=== PATIENT | female | born 1985 | race African-American/Black ===

== ENCOUNTER 2020-11-12 08:15 | Inpatient (IN) | payer OTHER ==
[2020-11-12 10:25] LABS: BASO % 0.4 % (0-2.0); HEMATOCRIT 30.8 % (32.4-45.2); HEMOGLOBIN 9.7 GM/dL (10.7-15.3); LYMPH % 11.1 % (8-40); MCH 24.1 pg (25.7-33.7); MCHC 31.6 g/dl (32.0-36.0); MEAN CELL VOLUME 76.2 fl (80-96); MEAN PLT VOLUME 8.5 fl (7.5-11.1); MONO % 9.8 % (3.8-10.2); NEUT % 77.7 % (42.8-82.8); PLATELET COUNT 365 K/MM3 (134-434); RBC 4.03 M/mm3 (3.60-5.2); RDW 25.8 % (11.6-15.6); WHITE BLOOD COUNT 12.2 K/mm3 (4.0-10.0)
[2020-11-12 10:32] LABS: INR 1.03 (0.83-1.09); PROTHROMBIN TIME (PATIENT) 12.7 SEC (9.7-13.0)
[2020-11-12 10:34] LABS: ACTIVATED PTT 26.4 SECONDS (25.2-36.5)
[2020-11-12 10:47] LABS: BLOOD UREA NITROGEN 4.3 mg/dL (7-18)
[2020-11-12 10:48] VITALS: BMI 32.4
[2020-11-12 10:50] LABS: CREATININE 0.6 mg/dL (0.55-1.3)
[2020-11-12 11:10] LABS: ANISOCYTOSIS 2+; MACROCYTOSIS 1+; PLATELET ESTIMATE NORMAL
[2020-11-12] MEDS ORDERED: OXYTOCIN 30 UNITS in 0.9% NS 30 UNIT/500 ML INFUS.BAG IVPB ONE (16:38)
[2020-11-12] MEDS ORDERED: DEXTROSE 5%-LACTATED RINGERS 1,000 ML IV SCH (16:45)
[2020-11-12] MEDS ORDERED: OXYTOCIN 30 UNITS in 0.9% NS 30 UNIT/500 ML INFUS.BAG IVPB SCH (17:00)
[2020-11-13] MEDS ORDERED: OXYTOCIN 20 UNITS in 0.9% NS 20 UNIT/1,000 ML INFUS.BAG IV ONE ×3 (00:06→04:10)
[2020-11-13] MEDS ORDERED: LIDOCAINE HCL 1% PRESERVATIVE FREE - 30ML VIAL ONE (00:06)
[2020-11-13] MEDS: OXYTOCIN 20 UNITS in 0.9% NS 20 UNIT/1,000 ML INFUS.BAG IV SCH ×4 (00:30→21:31)
[2020-11-13] MEDS ORDERED: ACETAMINOPHEN INJECTION 100 ML IVPB ONE (00:55)
[2020-11-13] MEDS ORDERED: OXYTOCIN 10 UNIT/ML 10ML MDV IM ONE (01:00)
[2020-11-13] MEDS ORDERED: OXYTOCIN 10 UNITS/ML VIAL ONE (01:00)
[2020-11-13 01:08] LABS: CORD HCO3 21.9 mmHg (20-29); CORD PCO2 42.6 mmHg (30-78); CORD pH 7.328 (7.14-7.44)
[2020-11-13 01:09] LABS: CORD BASE EXCESS -3.8 mmol/L (0-2); CORD HCO3 21.7 mmHg (20-29); CORD PCO2 41.1 mmHg (30-78); CORD pH 7.341 (7.14-7.44)
[2020-11-13] MEDS ORDERED: METHYLERGONOVINE MALEATE 0.2 MG/1 ML AMP IM PRN (03:25)
[2020-11-13] MEDS ORDERED: ACETAMINOPHEN 325 MG TABLET (FP) PO PRN (03:25)
[2020-11-13] MEDS ORDERED: BENZOCAINE 28 GM HEMORRHOIDAL OINTMENT TP PRN (03:25)
[2020-11-13] MEDS ORDERED: BISACODYL 10 MG SUPP.RECT RC PRN (03:25)
[2020-11-13] MEDS ORDERED: IBUPROFEN 600 MG TABLET (FP) PO ONE (03:25)
[2020-11-13] MEDS: IBUPROFEN 600 MG TABLET (FP) PO PRN ×3 (03:25→22:21)
[2020-11-13] MEDS ORDERED: WITCH HAZEL 50% (TUCKS) 40 PAD/JAR PAD TP PRN (03:25)
[2020-11-13] MEDS ORDERED: BENZOCAINE 20% 57 GM BOTTLE TP PRN (03:25)
[2020-11-13] MEDS ORDERED: ACETAMINOPHEN 1000 MG/100 ML VIAL (NON FORMULARY) IVPB PRN (04:00)
[2020-11-13] MEDS ORDERED: IRON SUCROSE INJECTION 300 MG in SODIUM CHLORIDE 235 ML IVPB ONE (04:45)
[2020-11-13 05:28] LABS: BASO % 0.3 % (0-2.0); EOS % 0.1 % (0-4.5); HEMATOCRIT 29.8 % (32.4-45.2); HEMOGLOBIN 9.3 GM/dL (10.7-15.3); LYMPH % 6.3 % (8-40); MCH 24.3 pg (25.7-33.7); MEAN CELL VOLUME 78.4 fl (80-96); MEAN PLT VOLUME 8.8 fl (7.5-11.1); MONO % 6.4 % (3.8-10.2); NEUT % 86.9 % (42.8-82.8); PLATELET COUNT 385 K/MM3 (134-434); RBC 3.81 M/mm3 (3.60-5.2); WHITE BLOOD COUNT 20.9 K/mm3 (4.0-10.0)
[2020-11-13 08:32] LABS: BASO % 0.2 % (0-2.0); EOS % 0.3 % (0-4.5); HEMATOCRIT 28.8 % (32.4-45.2); HEMOGLOBIN 8.9 GM/dL (10.7-15.3); LYMPH % 8.8 % (8-40); MCH 23.7 pg (25.7-33.7); MCHC 30.9 g/dl (32.0-36.0); MEAN CELL VOLUME 76.6 fl (80-96); MEAN PLT VOLUME 8.2 fl (7.5-11.1); MONO % 7.4 % (3.8-10.2); NEUT % 83.3 % (42.8-82.8); PLATELET COUNT 349 K/MM3 (134-434); RBC 3.76 M/mm3 (3.60-5.2); RDW 25.8 % (11.6-15.6); WHITE BLOOD COUNT 19.7 K/mm3 (4.0-10.0)
[2020-11-13 08:38] LABS: INR 1.02 (0.83-1.09); PROTHROMBIN TIME (PATIENT) 12.3 SEC (9.7-13.0)
[2020-11-13] MEDS ORDERED: DIPHTH,PERTUSS(ACELL),TET 0.5 ML DISP.SYRIN IM ONE (10:00)
[2020-11-13 10:27] LABS: ANISOCYTOSIS 0; MACROCYTOSIS 0; PLATELET ESTIMATE NORMAL
[2020-11-13] MEDS: PRENATAL VITAMINS W/ FOLIC ACID TABLET (FP) PO SCH (11:14)
[2020-11-14 08:59] LABS: BASO % 0.3 % (0-2.0); HEMATOCRIT 23.9 % (32.4-45.2); HEMOGLOBIN 7.6 GM/dL (10.7-15.3); LYMPH % 13.1 % (8-40); MCH 24.6 pg (25.7-33.7); MCHC 31.6 g/dl (32.0-36.0); MEAN CELL VOLUME 77.6 fl (80-96); MEAN PLT VOLUME 8.2 fl (7.5-11.1); MONO % 7.9 % (3.8-10.2); NEUT % 77.7 % (42.8-82.8); PLATELET COUNT 313 K/MM3 (134-434); RBC 3.08 M/mm3 (3.60-5.2); RDW 25.9 % (11.6-15.6); WHITE BLOOD COUNT 14.8 K/mm3 (4.0-10.0)
[2020-11-14] MEDS: PRENATAL VITAMINS W/ FOLIC ACID TABLET (FP) PO SCH (09:56)
[2020-11-14] MEDS ORDERED: DIPHTH,PERTUSS(ACELL),TET 0.5 ML DISP.SYRIN IM ONE (10:00)
[2020-11-14 10:22] LABS: ANISOCYTOSIS 1+; MACROCYTOSIS 0; OVALOCYTE 1+; PLATELET ESTIMATE NORMAL
[2020-11-14] MEDS: IBUPROFEN 600 MG TABLET (FP) PO PRN (17:04)
[2020-11-14] MEDS ORDERED: SENNOSIDES/DOCUSATE COMBO (SENNA PLUS) TABLET (UD) PO PRN (22:00)
[2020-11-15] MEDS: PRENATAL VITAMINS W/ FOLIC ACID TABLET (FP) PO SCH (09:08)
[2020-11-15 09:23] VITALS: BP 101/61; PULSE 80; TEMP 98.1
[2020-11-15] MEDS: IBUPROFEN 600 MG TABLET (FP) PO PRN (13:26)
== END 2020-11-15 14:20 | disposition home or self-care (01) | DRG 806 ==
LOC: JLDR 08:15 → J3W 11-13 05:50
PROVIDERS: ADMIT Obstetrics & Gynecology Maternal & Fetal Medicine; ATTEND Obstetrics & Gynecology Maternal & Fetal Medicine
PROC: 10E0XZZ Delivery of Products of Conception, External Approach (ICD-10-PCS; principal; 2020-11-13)
PROC: 0UQMXZZ Repair Vulva, External Approach (ICD-10-PCS; 2020-11-13)
PROC: 10907ZC Drainage of Amniotic Fluid, Therapeutic from Products of Conception, Via Natural or Artificial Opening (ICD-10-PCS; 2020-11-13)
DX: O99.12 Other diseases of the blood and blood-forming organs and certain disorders involving the immune mechanism complicating childbirth (principal); D68.9 Coagulation defect, unspecified; Z37.0 Single live birth; D68.59 Other primary thrombophilia; O99.03 Anemia complicating the puerperium; D64.89 Other specified anemias; Z3A.39 39 weeks gestation of pregnancy; O70.0 First degree perineal laceration during delivery
CPT/HCPCS: 36415; 36600; 59409; 80048; 82803; 85025; 85610; 85730; 86780; 86850; 86900; 86901; 90715; C9803; J0131; J1756; U0003; U0005

== ENCOUNTER 2023-04-04 20:40 | Inpatient (IN) | payer OTHER ==
[2023-04-04] MEDS ORDERED: DEXTROSE 5%-LACTATED RINGERS 1,000 ML IV ONE (21:00)
[2023-04-04 21:21] VITALS: BMI 33.3
[2023-04-04] MEDS ORDERED: LIDOCAINE HCL 1% PRESERVATIVE FREE - 30ML VIAL ONE (21:35)
[2023-04-04] MEDS ORDERED: OXYTOCIN 20 UNITS in 0.9% NS 20 UNIT/1,000 ML INFUS.BAG IV ONE (21:36)
[2023-04-04 21:43] LABS: BASO % 0.2 % (0-2.0); EOS % 0.6 % (0-4.5); HEMATOCRIT 32.8 % (32.4-45.2); HEMOGLOBIN 10.1 GM/dL (10.7-15.3); LYMPH % 10.2 % (8-40); MCH 23.1 pg (25.7-33.7); MCHC 30.6 g/dl (32.0-36.0); MEAN CELL VOLUME 75.5 fl (80-96); MEAN PLT VOLUME 8.4 fl (7.5-11.1); MONO % 6.8 % (3.8-10.2); NEUT % 82.2 % (42.8-82.8); PLATELET COUNT 393 10^3/uL (134-434); RBC 4.35 M/mm3 (3.60-5.2); RDW 19.2 % (11.6-15.6); WHITE BLOOD COUNT 14.2 K/mm3 (4.0-10.0)
[2023-04-04 21:49] LABS: INR 1.04 (0.83-1.09); PROTHROMBIN TIME (PATIENT) 12.1 SEC (9.7-13.0)
[2023-04-04 21:52] LABS: ACTIVATED PTT 27.8 SECONDS (25.2-36.5)
[2023-04-04] MEDS ORDERED: ACETAMINOPHEN 325 MG TABLET (FP) ONE (22:02)
[2023-04-04] MEDS ORDERED: IBUPROFEN 600 MG TABLET (FP) PO ONE (22:02)
[2023-04-04] MEDS: IBUPROFEN 600 MG TABLET (FP) PO PRN (22:05)
[2023-04-04] MEDS ORDERED: WITCH HAZEL 50% (TUCKS) 40 PAD/JAR PAD TP PRN (22:10)
[2023-04-04] MEDS ORDERED: BENZOCAINE 28 GM HEMORRHOIDAL OINTMENT TP PRN (22:10)
[2023-04-04] MEDS ORDERED: ACETAMINOPHEN 325 MG TABLET (FP) PO PRN (22:10)
[2023-04-04] MEDS ORDERED: OXYTOCIN 20 UNITS in 0.9% NS 20 UNIT/1,000 ML INFUS.BAG IV SCH (22:15)
[2023-04-04 22:30] LABS: CORD BASE EXCESS -3.3 mmol/L (0-2); CORD HCO3 21.5 mmHg (20-29); CORD PCO2 37.9 mmHg (30-78); CORD pH 7.371 (7.14-7.44)
[2023-04-04 22:36] LABS: ANISOCYTOSIS 3+; MACROCYTOSIS 0; TEAR DROP CELLS 1+
[2023-04-04 22:38] LABS: POTASSIUM 3.9 mmol/L (3.5-5.1)
[2023-04-04 22:39] LABS: CALCIUM 8.6 mg/dL (8.5-10.1)
[2023-04-04 22:40] LABS: BLOOD UREA NITROGEN 7.5 mg/dL (7-18)
[2023-04-04 22:43] LABS: CREATININE 0.7 mg/dL (0.55-1.3)
[2023-04-04] MEDS ORDERED: OXYTOCIN 10 UNITS/ML VIAL ONE (23:20)
[2023-04-04] MEDS ORDERED: OXYTOCIN 10 UNITS/ML VIAL IM ONE (23:25)
[2023-04-04] MEDS ORDERED: D5W-LR W/ 20 UNITS OXYTOCIN 20 UNIT/1,000 ML INFUS.BAG IV SCH (23:45)
[2023-04-05] MEDS ORDERED: OXYTOCIN 20 UNITS in 0.9% NS 20 UNIT/1,000 ML INFUS.BAG IV SCH (00:15)
[2023-04-05] MEDS: IBUPROFEN 600 MG TABLET (FP) PO PRN ×2 (02:09→11:13)
[2023-04-05 07:03] VITALS: TEMP 98.3
[2023-04-05 08:10] LABS: HEMATOCRIT 28.6 % (32.4-45.2); HEMOGLOBIN 8.8 GM/dL (10.7-15.3); MCH 23.7 pg (25.7-33.7); MCHC 30.7 g/dl (32.0-36.0); MEAN CELL VOLUME 77.1 fl (80-96); MEAN PLT VOLUME 9.1 fl (7.5-11.1); PLATELET COUNT 356 10^3/uL (134-434); RBC 3.71 M/mm3 (3.60-5.2); RDW 18.8 % (11.6-15.6)
[2023-04-05 09:51] LABS: ANISOCYTOSIS 1+; MACROCYTOSIS 1+
[2023-04-05] MEDS: PRENATAL VITAMINS W/ FOLIC ACID TABLET (FP) PO SCH (11:13)
[2023-04-06] MEDS: IBUPROFEN 600 MG TABLET (FP) PO PRN (11:05)
[2023-04-06] MEDS: PRENATAL VITAMINS W/ FOLIC ACID TABLET (FP) PO SCH (11:07)
[2023-04-06 12:59] VITALS: BP 98/61; PULSE 83; RESP 17
== END 2023-04-06 15:35 | disposition home or self-care (01) | DRG 807 ==
LOC: JLDR 20:40 → J3W 04-05 00:46
PROVIDERS: ADMIT Obstetrics & Gynecology Maternal & Fetal Medicine; ATTEND Obstetrics & Gynecology Maternal & Fetal Medicine
PROC: 10E0XZZ Delivery of Products of Conception, External Approach (ICD-10-PCS; principal; 2023-04-04)
DX: O99.12 Other diseases of the blood and blood-forming organs and certain disorders involving the immune mechanism complicating childbirth (principal); Z37.0 Single live birth; Z3A.39 39 weeks gestation of pregnancy
CPT/HCPCS: 36415; 36600; 80048; 82803; 85025; 85610; 85730; 86780; 86850; 86900; 86901; 88307-TC